=== PATIENT | male | born 1955 | race Caucasian/White ===

== ENCOUNTER → 2019-10-30 07:51 | Outpatient (CLI) | payer OTHER, SELFPAY ==
--- NOTE | 2019-10-30 | DI.US.S_ITS ---
PROCEDURE: US RENAL COMPLETE INDICATIONS: GROSS HEMATURIA; RIGHT FLANK PAIN TECHNIQUE: Real-time scanning was performed of the kidneys and bladder, with image documentation. COMPARISON: [facility], , L-SPINE WITHOUT CONTRAST, 05/26/2011, 18:26. FINDINGS: Kidneys: Kidneys are normal in size. Right kidney measures 13.5 cm long; left kidney measures 12.2 cm long. Right renal cortical thickness is 2.1 cm; left renal cortical thickness is 1.6 cm. Renal cortical echotexture is normal. No hydronephrosis or nephrolithiasis. No suspicious solid mass lesions. Bladder: Pre-void bladder volume is 119 mL. Post-void residual is 0 mL. Pre-void images demonstrate no intraluminal masses or stones. On pre-void images, only the left ureteral jet can be seen with color Doppler interrogation. (Of note, ureteral jets may not be detectable in up to 25% of cases due to insufficient differences in specific gravity between ureteral and bladder urine). Miscellaneous: No free pelvic fluid. IMPRESSION: No imaging explanation is found for this patient's presenting symptoms. No masses or hydronephrosis can be seen. For further evaluation of the patient's presenting history of hematuria, please consider a dedicated hematuria protocol CT without and with contrast (assuming that there is no contraindication). Dictated by: Kayode Amezcua M.D. on 10/30/2019 at 8:48 Approved by: Kayode Amezcua M.D. on 10/30/2019 at 8:49
== END ==
PROVIDERS: PCP Internal Medicine; Referring Provider Family Medicine; Visit Provider Family Medicine
DX: R31.0 Gross hematuria (principal); R10.9 Unspecified abdominal pain
CPT/HCPCS: 76770